=== PATIENT | male | born 2000 | race Hispanic/Latino ===

== ENCOUNTER 2025-02-19 10:37 | Emergency (ER) | payer OTHER, SELFPAY ==
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
[2025-02-19 10:55] VITALS: BP 176/92; PULSE 93; RESP 16; TEMP 36.6; O2SAT 100
[2025-02-19 11:30] VITALS: BP 138/78; PULSE 80; RESP 16; TEMP 36.6; O2SAT 100
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
[2025-02-19 12:30] VITALS: BP 132/80; PULSE 78; RESP 16; TEMP 36.6; O2SAT 98
[2025-02-19 13:30] VITALS: BP 126/74; PULSE 78; RESP 16; TEMP 36.5; O2SAT 98
== END 2025-02-19 14:17 | disposition home or self-care (01) ==
PROVIDERS: Emergency Provider Emergency Medicine
DX: S60.212A Contusion of left wrist, initial encounter (principal); S00.83XA Contusion of other part of head, initial encounter; V49.40XA Driver injured in collision with unspecified motor vehicles in traffic accident, initial encounter
CPT/HCPCS: 70450; 70486; 72125; 73110; 99284